=== PATIENT | male | born 2000 | race Asian ===

== ENCOUNTER 2022-07-12 00:41 | Emergency (ER) | payer OTHER, SELFPAY ==
[2022-07-12 00:50] VITALS: BP 123/68; BP 126/80; PULSE 101; PULSE 96; RESP 20; O2SAT 97; O2SAT 98; BMI 18.5
--- NOTE | 2022-07-12 00:54 | ED_ITS ---
HPI - Asthma General Chief Complaint: Asthma Stated Complaint: Asthma Time Seen by Provider: 07/12/22 00:47 Source: patient Mode of arrival: ambulatory Limitations: no limitations History of Present Illness HPI Narrative: Patient has history of asthma was vaping and doing the cleanup at home started wheezing not have any rescue inhaler at home EMS gave him 1 after our patient feeling much better saturating 97% at room air Related Data Previous Rx's Medication Instructions Recorded albuterol sulfate 90 mcg/actuation 2 puff inhalation Q4-6H PRN 07/12/22 aerosol inhaler (ProAir HFA) shortness of breath or wheezing #8.5 grams prednisone 20 mg tablet 40 mg PO DAILY #10 tabs 07/12/22 Allergies Allergy/AdvReac Type Severity Reaction Status Date / Time No Known Allergies Allergy Verified 07/12/22 00:56 Review of Systems Review of Systems: Yes all other systems are reviewed and are negative [facility] Social History Social History Advance Directives: No Advance Directives Information Provided: No Physical Exam Vital Signs: Vital Signs: Last Vital Signs Pulse 99 07/12/22 01:43 Resp 18 07/12/22 01:43 BP 123/68 07/12/22 00:50 Pulse Ox 97 07/12/22 00:50 O2 Del Method 07/12/22 00:50 Oxygen Flow Rate 3.5 07/12/22 00:50 BMI result Body Mass Index 18.5 Appearance: Alert. Oriented X3. No acute distress. Eyes: PERRLA, No Nystagmus ENT: Pharynx normal. Oral Mucosa moist Neck: Normal inspection. Neck supple. CVS: Normal heart rate and rhythm. Pulses normal. Respiratory: No respiratory distress. Equal air entry bilateral, bilateral with Abdomen: Soft and nontender. Bowel sounds are present, no mass palpable, no CVA tenderness Skin: Skin warm and dry. Normal skin color. Normal skin turgor. Extremities: No lower extremity edema. No calf tenderness Neuro: Oriented X 3. No motor deficit. MDM - Asthma MDM Narrative Medical decision making narrative: Patient with acute asthma from drug exposure to chemical feeling much better now will discharge patient home on inhaler and prednisone patient is saturating 97% on room air Differential Diagnosis Differential diagnosis: Likely Acute exacerbation and Acute asthmatic bronchitis Discharge Plan Discharge Clinical Impression: Asthma with acute exacerbation Patient Disposition: Home, Self-Care Instructions: Asthma (ED) Additional Instructions: Use inhaler 2 puffs every 4-6 hours as advised Avoid chemicals and Vaping Prednisone as advised Follow with PCP if not better Prescriptions: New prednisone 20 mg tablet 40 mg PO DAILY Qty: 10 0RF albuterol sulfate [ProAir HFA] 90 mcg/actuation HFA aerosol inhaler 2 puff inhalation Q4-6H PRN (Reason: shortness of breath or wheezing) Qty: 8.5 1RF
--- OUTSIDE RECORDS SUMMARY | 2022-07-12 01:20 | XMS_ITS | Continuity of Care Document ---
:[address] [facility] Care Team Providers Name Role Phone [facility] Unavailable Unavailable Vital Signs Combined list of inpatient and outpatient Vital Signs from [facility], ranging from 12 months to all on record, depending upon the facility. Vital Sign Value Date Comments Source No data available for this section Ambulatory Pharmacy Encounters Combined list of: 1) Encounters from [facility] facilities going back up to the last 18 months. 2) Encounters from the [facility] facilities going back up to 280 months. Location Location Encounter Encounter Reason Attending ADM DC Stat us Disposition Source Details Type Number For Provider Date Date Visit Lifetime [id number] 05/03 Ambulat Pharmacy /2021 ory Pharmac y Outside [id number] 05/03 05/03 Discharge 8810C -B Documentat /2021 Disposition: [place] Only Home or Self [facility] Care Between [id number] 05/03 05/03 Discharge 8810C -B Visit /2021 Disposition: [place] Home or Self [facility] Care Procedures Combined list of: 1) Procedures from [facility] facilities going back up to the last 18 months, not all [place] non-surgical procedures are included; 2) All procedures from the [facility] facilities. Procedure Procedure Type Code Date Perfomer Comments Sourc e No data available [facility] section Assessment and Plan Combined list of future care activities from [facility] facilities (e.g., assessment and plan notes, appointments, orders, and referrals). Additional future care activities may be listed in the Plan of Care section. Result Assessment and Plan Date Source Assessment and Plan No data available for this 07/12/2022 [facility] section Functional Status Combined list of recent functional and cognitive assessments recorded at [facility] Functional [place] Measurement (FIM) Scale: 1 = Total Assistance (Subject = 0% +), 2 = Maximal Assistance (Subject = 25% +), 3 = Moderate Assistance (Subject = 50% +), 4 = Mi nimal Assistance (Subject = 75% +), 5 = Supervision, 6 = Modified [place] (Device), 7 = Complete [place] (Timely, Safely). Assessment Source Assessment Type Assessment Assessment Assessmen t Date/Time Skill Score Details No data available for this section
[2022-07-12] MEDS: predniSONE 20 MG TABLET 60 MG PO (01:29)
--- NOTE | 2022-07-12 01:35 | PC.NURSE ---
Pt. in room in bed with g/f at bedside. Pt. states he is feeling better, but still has some chest tightness. Pt. reports this as the worst asthma attack he's had. It was preceeded by exposure to animal dander while cleaning.
[2022-07-12] MEDS: Albuterol Sulfate 2.5 MG, Albuterol Sulfate (0.083%) 2.5 MG 5 MG INHALE (01:41)
[2022-07-12 01:43] VITALS: PULSE 99; RESP 18; O2SAT 97
[2022-07-12] MEDS: Albuterol Sulfate 90 MCG 8 GM INHALER 2 PUFF INHALE (02:07)
--- NOTE | 2022-07-12 02:11 | PC.NURSE ---
Pt. reports feeling better after his breathing treatment. No SOB noted.
== END 2022-07-12 02:12 | disposition home or self-care (01) ==
PROVIDERS: Emergency Provider Internal Medicine
DX: J45.901 Unspecified asthma with (acute) exacerbation (principal)
CPT/HCPCS: 99283; 99284